=== PATIENT | male | born 1985 | race African-American/Black ===

== ENCOUNTER 2017-12-04 17:17 | Emergency (ER) | payer SELFPAY ==
--- OUTSIDE RECORDS SUMMARY | 2017-12-04 17:18 | XMS REPORT ---
:1985 [facility] Address [address] [place]. [address] [place] [id number] Care Team Providers Name Role Phone Unavailable Unavailable Unavailable Problems This patient has no known problems. Allergies, Adverse Reactions, Alerts This patient has no known allergies or adverse reactions. Medications This patient has no known medications.
--- NOTE | 2017-12-04 17:50 | ER ---
Nurse's Notes [facility] Name: Reginald Willoughby II Age: 32 yrs Sex: Male : 1985 Arrival Date: 12/04/2017 Time: 17:21 Bed 13 Private MD: None, None Diagnosis: Low back pain Presentation: 12/04 17:35 Presenting complaint: Patient states: "I hurt my back yesterday doing some work around aa5 the house". pt c/o pain to lower back. Transition of care: patient was not received from another setting of care. Onset of symptoms was November 2017. Risk Assessment: Do you want to hurt yourself or someone else? Patient reports no desire to harm self or others. Initial Sepsis Screen: Does the patient meet any 2 criteria? No. Patient's initial sepsis screen is negative. Does the patient have a suspected source of infection? No. Patient's initial sepsis screen is negative. Care prior to arrival: None. 17:35 Method Of Arrival: Ambulatory aa5 17:35 Acuity: JHONNY 4 aa5 Historical: - Allergies: 17:36 Trazodone; aa5 - PMHx: 17:36 hypertension -diet controlled; aa5 - PSHx: 17:36 None; aa5 - Immunization history:: Adult Immunizations unknown. - Social history:: Smoking status: Patient uses tobacco products, smokes one pack cigarettes per day. - Ebola Screening: : No symptoms or risks identified at this time. Screenin:05 Abuse screen: Denies threats or abuse. Denies injuries from another. Nutritional rv screening: No deficits noted. Tuberculosis screening: No symptoms or risk factors identified. Fall Risk None identified. Assessment: 18:05 General: Appears in no apparent distress. comfortable, Behavior is calm, cooperative. rv Pain: Complains of pain in back. Neuro: Level of Consciousness is awake, alert, obeys commands, Oriented to person, place, time, situation. Cardiovascular: Capillary refill < 3 seconds. Respiratory: Airway is patent. GI: No signs and/or symptoms were reported involving the gastrointestinal system. : No signs and/or symptoms were reported regarding the genitourinary system. EENT: No signs and/or symptoms were reported regarding the EENT system. Derm: Skin is intact. Vital Signs: 17:36 BP 132 / 89; Pulse 98; Resp 18 S; Temp 99.0(TE); Pulse Ox 99% on R/A; Pain 7/10; aa5 ED Course: 17:21 Patient arrived in ED. mr 17:21 None, None is Private Physician. mr 17:25 Cleo Ignacio FNP-C is [facility]. snw 17:25 Kingston Martins MD is Attending Physician. snw 17:35 Triage completed. aa5 17:36 Arm band placed on. aa5 18:07 Patient has correct armband on for positive identification. Bed in low position. Call rv light in reach. Side rails up X 1. Adult w/ patient. Pulse ox on. NIBP on. 18:07 No provider procedures requiring assistance completed. Patient did not have IV access rv during this emergency room visit. Administered Medications: 18:04 Drug: TORadol 60 mg Route: IM; Site: right deltoid; rv 18:08 Follow up: Response: Medication administered at discharge. rv Outcome: 17:50 Discharge ordered by . snw 18:08 Discharged to home ambulatory. rv 18:08 Condition: improved 18:08 Discharge instructions given to patient, family, Instructed on discharge instructions, follow up and referral plans. medication usage, Demonstrated understanding of instructions, follow-up care, medications, Prescriptions given X 2. 18:08 Patient left the ED. rv Signatures: Cleo Ignacio FNP-C FNP-Gunjan Genoveva OlivaresKiera RN RN aa5 Mahamed Hong RN RN rv
--- NOTE | 2017-12-04 17:50 | EDPHYS ---
Physician Documentation [facility] Name: Reginald Willoughby II Age: 32 yrs Sex: Male : 1985 Arrival Date: 12/04/2017 Time: 17:21 Bed 13 Private MD: None, None ED Physician Kingston Martins HPI: 12/04 17:59 This 32 yrs old Black Male presents to ER via Ambulatory with complaints of Back Pain. snw 17:59 The patient presents with pain that is acute. The symptoms are located in the low back. snw Onset: The symptoms/episode began/occurred suddenly, yesterday. The pain does not radiate. Associated signs and symptoms: The patient has no apparent associated signs or symptoms. The problem was sustained when bending over, when lifting heavy object. Severity of symptoms: At their worst the symptoms were moderate. The patient has not experienced similar symptoms in the past. It is unknown whether or not the patient has recently seen a physician. Historical: - Allergies: 17:36 Trazodone; aa5 - PMHx: 17:36 hypertension -diet controlled; aa5 - PSHx: 17:36 None; aa5 - Immunization history:: Adult Immunizations unknown. - Social history:: Smoking status: Patient uses tobacco products, smokes one pack cigarettes per day. - Ebola Screening: : No symptoms or risks identified at this time. ROS: 17:59 Constitutional: Negative for fever, chills, and weight loss, Eyes: Negative for injury, snw pain, redness, and discharge, ENT: Negative for injury, pain, and discharge, Neck: Negative for injury, pain, and swelling, Cardiovascular: Negative for chest pain, palpitations, and edema, Respiratory: Negative for shortness of breath, cough, wheezing, and pleuritic chest pain, Abdomen/GI: Negative for abdominal pain, nausea, vomiting, diarrhea, and constipation, : Negative for injury, bleeding, discharge, and swelling, MS/Extremity: Negative for injury and deformity, Skin: Negative for injury, rash, and discoloration, Neuro: Negative for headache, weakness, numbness, tingling, and seizure. 17:59 Back: Positive for decreased range of motion, pain at rest, pain with movement, of the low back area. Exam: 17:58 Constitutional: This is a well developed, well nourished patient who is awake, alert, snw and in no acute distress. Head/Face: Normocephalic, atraumatic. Eyes: Pupils equal round and reactive to light, extra-ocular motions intact. Lids and lashes normal. Conjunctiva and sclera are non-icteric and not injected. Cornea within normal limits. Periorbital areas with no swelling, redness, or edema. ENT: Nares patent. No nasal discharge, no septal abnormalities noted. Tympanic membranes are normal and external auditory canals are clear. Oropharynx with no redness, swelling, or masses, exudates, or evidence of obstruction, uvula midline. Mucous membranes moist. Neck: Trachea midline, no thyromegaly or masses palpated, and no cervical lymphadenopathy. Supple, full range of motion without nuchal rigidity, or vertebral point tenderness. No Meningismus. Chest/axilla: Normal chest wall appearance and motion. Nontender with no deformity. No lesions are appreciated. Cardiovascular: Regular rate and rhythm with a normal S1 and S2. No gallops, murmurs, or rubs. Normal PMI, no JVD. No pulse deficits. Respiratory: Lungs have equal breath sounds bilaterally, clear to auscultation and percussion. No rales, rhonchi or wheezes noted. No increased work of breathing, no retractions or nasal flaring. Abdomen/GI: Soft, non-tender, with normal bowel sounds. No distension or tympany. No guarding or rebound. No evidence of tenderness throughout. Skin: Warm, dry with normal turgor. Normal color with no rashes, no lesions, and no evidence of cellulitis. MS/ Extremity: Pulses equal, no cyanosis. Neurovascular intact. Full, normal range of motion. Neuro: Awake and alert, GCS 15, oriented to person, place, time, and situation. Cranial nerves II-XII grossly intact. Motor strength 5/5 in all extremities. Sensory grossly intact. Cerebellar exam normal. Normal gait. Psych: Awake, alert, with orientation to person, place and time. Behavior, mood, and affect are within normal limits. 17:58 Back: pain, that is moderate, of the low back area, ROM is painful, with flexion, normal spinal alignment noted, CVA tenderness, is absent, muscle spasm, is appreciated in the low back area. Vital Signs: 17:36 BP 132 / 89; Pulse 98; Resp 18 S; Temp 99.0(TE); Pulse Ox 99% on R/A; Pain 7/10; aa5 MDM: 17:43 Patient medically screened. snw 17:59 Data reviewed: vital signs, nurses notes. Data interpreted: Pulse oximetry: on room air snw is 99 %. Interpretation: normal. Counseling: I had a detailed discussion with the patient and/or guardian regarding: the historical points, exam findings, and any diagnostic results supporting the discharge/admit diagnosis, the presence of at least one elevated blood pressure reading (>120/80) during this emergency department visit, the need for outpatient follow up, to return to the emergency department if symptoms worsen or persist or if there are any questions or concerns that arise at home. Special discussion: Based on the history and exam findings, there is no indication for further emergent testing or inpatient evaluation. I discussed with the patient/guardian the need to see the primary care provider for further evaluation of the symptoms. Administered Medications: 18:04 Drug: TORadol 60 mg Route: IM; Site: right deltoid; rv 18:08 Follow up: Response: Medication administered at discharge. rv Disposition: 12/05 07:39 Co-signature as Attending Physician, Kingston Martins MD I agree with the assessment and maryan plan of care. Disposition: 12/04/17 17:50 Discharged to Home. Impression: Low back pain. - Condition is Stable. - Discharge Instructions: Back Pain, Adult, Hypertension, Musculoskeletal Pain, Cryotherapy, Heat Therapy, Back Exercises. - Prescriptions for Diclofenac Sodium 75 mg Oral Tablet Sustained Release - take 1 tablet by ORAL route 2 times per day; 30 tablet. orphenadrine citrate 100 mg Oral Tablet Sustained Release - take 1 tablet by ORAL route 2 times per day As needed; 20 tablet. - Work release form, Medication Reconciliation Form, Thank You Letter, Antibiotic Education, Prescription Opioid Use form. - Follow up: Private Physician; When: 2 - 3 days; Reason: Recheck today's complaints, Continuance of care, Re-evaluation by your physician. Follow up: Emergency Department; When: As needed; Reason: Worsening of condition. Signatures: Kingston Martins MD MD cha Therrien, Shelly, SAP MOBILITY ARCHITECT-C SAP MOBILITY ARCHITECT-Csnw Kiera Cosby, RN RN aa5 Hal, Mahamed, RN RN rv Corrections: (The following items were deleted from the chart) 12/04 18:08 17:50 12/04/2017 17:50 Discharged to Home. Impression: Low back pain. Condition is rv Stable. Forms are Medication Reconciliation Form, Thank You Letter, Antibiotic Education, Prescription Opioid Use. Follow up: Private Physician; When: 2 - 3 days; Reason: Recheck today's complaints, Continuance of care, Re-evaluation by your physician. Follow up: Emergency Department; When: As needed; Reason: Worsening of condition. snw
[2017-12-04] MEDS ORDERED: KETOROLAC 30 MG/ML INJ ONE (18:04)
== END 2017-12-04 18:08 | disposition home or self-care (01) ==
LOC: ER 17:17
DX: M54.5 Low back pain (principal); I10 Essential (primary) hypertension; F17.210 Nicotine dependence, cigarettes, uncomplicated; Z88.5 Allergy status to narcotic agent
CPT/HCPCS: 96372; 99283